=== PATIENT | female | born 1995 | race Caucasian/White ===

== ENCOUNTER 2018-12-12 14:10 | Emergency (ER) | payer MEDICAID, OTHER ==
[~2018-12-12] VITALS: Ht 154.9 cm; Wt 68.0 kg
[2018-12-12] MEDS ORDERED: SODIUM CHLORIDE 0.9% 1,000 ML IV ONE (15:38)
[2018-12-12 15:51] LABS: HEMATOCRIT. 37.3 % (36.0-48.0); HEMOGLOBIN. 13.1 g/dL (12.0-16.0); MEAN CORPUSCULAR HEMOGLOBIN 30.9 pg (28.0-32.0); MEAN CORPUSCULAR VOLUME 88.3 fL (81.0-99.0); MEAN PLATELET VOLUME 7.8 fl (7.4-10.4); PLATELET 271 x1000/uL (130-400); RED BLOOD CELL COUNT 4.23 mill/uL (4.2-5.4); RED CELL DISTRIBUTION WIDTH 13.2 % (11.6-14.6)
[2018-12-12 15:58] LABS: CLARITY URINE CLEAR (CLEAR); COLOR URINE YELLOW (YELLOW); KETONES URINE NEGATIVE (NEGATIVE); LEUKOCYTE ESTERASE URINE NEGATIVE (NEGATIVE); NITRITE URINE NEGATIVE (NEGATIVE); OCCULT BLOOD URINE NEGATIVE (NEGATIVE); PROTEIN URINE NEGATIVE (NEGATIVE); SPECIFIC GRAVITY URINE 1.011 (1.005-1.030); UROBILINOGEN URINE 0.2 E.U./dL (0.2-1.0)
[2018-12-12 16:00] LABS: CHLORIDE 104 mEq/L (98-107)
[2018-12-12 16:06] LABS: PLATELET ESTIMATE NORMAL
[2018-12-12 17:56] VITALS: BP 112/64
== END 2018-12-12 17:58 | disposition home or self-care (01) ==
LOC: ER 14:10
DX: O26.891 Other specified pregnancy related conditions, first trimester (principal); M54.5 Low back pain; R53.83 Other fatigue; R06.00 Dyspnea, unspecified; Z3A.12 12 weeks gestation of pregnancy
CPT/HCPCS: 36415; 80053; 81003; 81025; 85025; 93005; 96360; 99284; J7030